=== PATIENT | male | born 1995 | race American Indian/Alaskan Native ===

== ENCOUNTER 2019-12-15 16:03 | Emergency (ER) | payer SELFPAY ==
[2019-12-15 16:58] VITALS: BP 114/66
[2019-12-15] MEDS ORDERED: IBUPROFEN 600 MG TAB PO ONE ×2 (17:43→17:44)
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
== END 2019-12-15 19:20 | disposition home or self-care (01) ==
LOC: ED 16:03
DX: S16.1XXA Strain of muscle, fascia and tendon at neck level, initial encounter (principal); S39.012A Strain of muscle, fascia and tendon of lower back, initial encounter; G44.209 Tension-type headache, unspecified, not intractable; J45.909 Unspecified asthma, uncomplicated; Z91.010 Allergy to peanuts; V89.2XXA Person injured in unspecified motor-vehicle accident, traffic, initial encounter; Y93.89 Activity, other specified; Y92.410 Unspecified street and highway as the place of occurrence of the external cause; Y99.8 Other external cause status
CPT/HCPCS: 72070